=== PATIENT | female | born 1995 | race Hispanic/Latino ===

== ENCOUNTER 2020-04-14 18:47 | Emergency (ER) | payer SELFPAY ==
[~2020-04-14] VITALS: Ht 160 cm; Wt 83.9 kg
[2020-04-14] MEDS ORDERED: AZITHROMYCIN250 MG PO (19:56)
[2020-04-14] MEDS ORDERED: DECADRON6 MG PO (19:57)
--- NOTE | 2020-04-14 22:56 | Emergency Department Note ---
History of Present Illnes History of Present Illness Chief Complaint: COVID PUI History of Present Illness This is a 24 year old female with non-productive cough, sore throat, clear/green runny nose X 3 days. Had diarrhea on first day, but normal BM since then. + loss of taste and smell. Sister with similar symptoms. Has not been COVID tested. No fever/chills. No N/V. Historian: Patient Arrival Mode: Car Head Doffer Required: No Onset (how long ago): day(s) Severity: unable to specify Onset quality: gradual Duration (how long): day(s) Timing of current episode: constant Progression: worsening Chronicity: new Context: Denies trauma/injury Relieving factors: none Exacerbating factors: none Associated symptoms: Reports cough; Denies fever/chills, Denies rash, Denies shortness of breath Treatments prior to arrival: none Past Medical/Family History Physician Review I have reviewed the patient's past medical and family history. Any updates have been documented here. Past Medical History Recent Fever: No Clinical Suspicion of Infectio: No New/Unexplained Change in Ment: No Past Medical History: None Past Surgical History: None Social History Smoking Cessation: Never Smoker Counseling Performed: No Alcohol Use: None Any Illegal Drug Use: No Physically hurt or threatened: No Other Any Pre-Existing Lines (PICC,: No Review of Systems Review of Systems Constitutional: Denies chills, Denies fever EENTM: Reports as per HPI, Reports throat pain Cardiovascular: Denies chest pain, Denies palpitations Respiratory: Reports as per HPI Gastrointestinal: Reports as per HPI, Reports diarrhea Genitourinary: Denies dysuria Musculoskeletal: Denies joint pain, Denies joint swelling Integumentary: Denies rash Neurological: Denies headache Psychological: Denies anxiety Endocrine: Denies increased thirst, Denies increased urination Hematological/Lymphatic: Denies easy bleeding, Denies easy bruising Physical Exam Related Data Allergies: Coded Allergies: No Known Allergies (Unverified , 04/14/20) Vital signs reviewed: Yes Physical Exam CONSTITUTIONAL Constitutional: Present well-developed, Present well-nourished HENT HENT: Present normocephalic, Present atraumatic, Present oropharynx clear/moist, Present oropharynx normal, Present nose normal; Absent nasal discharge, Absent nasal congestion, Absent rhinorrhea, Absent oropharyngeal exudate, Absent tonsillar excudate, Absent pharynx abnormal, Absent erythema HENT L/R: Present left ext ear normal, Present right ext ear normal EYES Eyes: Reports PERRL, Reports conjunctivae normal NECK Neck: Present ROM normal PULMONARY Pulmonary: Present effort normal, Present breath sounds normal CARDIOVASCULAR Cardiovascular: Present regular rhythm, Present heart sounds normal, Present capillary refill normal, Present normal rate GASTROINTESTINAL Abdominal: Present soft, Present nontender, Present bowel sounds normal GENITOURINARY SKIN Skin: Present warm, Present dry MUSCULOSKELETAL Musculoskeletal: Present ROM normal NEUROLOGICAL Neurological: Present alert, Present oriented x 3, Present no gross motor or sensory deficits PSYCHOLOGICAL Psychological: Present mood/affect normal, Present judgement normal Procedures Pulse Oximetry Pulse ox probe location: digit - finger Initial readin Actions taking: none Additional comments Impression: normal on RA Assessment & Plan Medical Decision Making MDM symptoms include, but not limited to: URI, Viral illness, COVID, Strep throat, sinusitis, pneumonia. Given COVID symptoms will treat with Z-pack and decadron and f/u for COVID testing. Assessment & Plan Final Impression: (1) COVID-19 (2) Exposure to COVID-19 virus Depart Disposition: HOME, SELF-correction Meds Active Scripts Dexamethasone (Decadron) 6 Mg Tablet, 1 CAP PO QAM, #5 Prov:ROSI OCONNOR MD 04/14/20 Azithromycin (Z-MINDY) 250 Mg Tablet, 250 MG PO UD, #1 UDPKT Z-Pack Prov:ROSI OCONNOR MD 04/14/20 ROSI OCONNOR MD Apr 14, 2020 19:59
== END 2020-04-14 19:45 | disposition home or self-care (01) ==
LOC: FSED 19:30
DX: U07.1 COVID-19 (principal); R05 Cough
CPT/HCPCS: 99282